=== PATIENT | male | born 1975 | race Caucasian/White ===

== ENCOUNTER 2016-11-25 09:36 | Emergency (ER) | payer OTHER | END 2016-11-25 10:45 | disposition home or self-care (01) | LOC: D.ER 09:36 | DX: K08.89 Other specified disorders of teeth and supporting structures (principal); K02.9 Dental caries, unspecified; R68.84 Jaw pain; F17.200 Nicotine dependence, unspecified, uncomplicated ==

== ENCOUNTER 2017-03-19 07:41 | Emergency (ER) | payer SELFPAY | END 2017-03-19 08:59 | disposition home or self-care (01) | LOC: D.ER 07:41 | DX: M54.9 Dorsalgia, unspecified (principal); Y04.2XXA Assault by strike against or bumped into by another person, initial encounter; Y93.89 Activity, other specified; Y92.029 Unspecified place in mobile home as the place of occurrence of the external cause; F17.200 Nicotine dependence, unspecified, uncomplicated ==